=== PATIENT | female | born 1990 | race African-American/Black ===

== ENCOUNTER 2020-11-26 10:11 | Emergency (ER) | payer OTHER ==
[~2020-11-26] VITALS: Ht 157.5 cm; Wt 127.0 kg
--- NOTE | 2020-11-26 10:11 | NUR ---
PT BIBRA FROM HOME C/O ABDOMINAL PAIN AND VAGINAL BLEED. PT IS AAOX4, NOT IN RESPIRATORY DISTRESS, V/S STABLE, KEPT RESTED AND COMFORTABLE. WILL CONTINUE TO MONITOR.
--- NOTE | 2020-11-26 10:22 | NUR ---
AT BEDSIDE FOR EVAL.
[2020-11-26] MEDS ORDERED: MORPHINE SULFATE INJ 2 MG/ML DISP.SYRIN IV ONE (10:30)
[2020-11-26] MEDS ORDERED: ONDANSETRON HCL/PF 4 MG/2 ML VIAL IVP ONE (10:30)
[2020-11-26] MEDS ORDERED: IV NS 0.9% 1,000 ML BAG IV ONE (10:30)
[2020-11-26] MEDS ORDERED: KETOROLAC TROMETHAMINE INJ 30 MG/ML VIAL IV ONE (10:30)
--- NOTE | 2020-11-26 10:30 | NUR ---
IV LINE ESTABLISHED BLOOD DRAWN AND SENT TO LAB.
[2020-11-26] MEDS ORDERED: KETOROLAC TROMETHAMINE INJ 30 MG/ML VIAL ONE (10:33)
[2020-11-26] MEDS ORDERED: ONDANSETRON HCL/PF 4 MG/2 ML VIAL ONE (10:33)
--- NOTE | 2020-11-26 10:37 | NUR ---
TECH AT BEDSIDE FOR ULTRASOUND.
[2020-11-26 11:24] LABS: BASOPHILS % (AUTO) 0.4 % (0.0-2.0); EOSINOPHILS % (AUTO) 0.6 % (0.0-6.0); HEMATOCRIT 35 % (33-45); HEMOGLOBIN 11.6 g/dL (11.5-14.8); LYMPHOCYTES # (AUTO) 1.6 /CMM (0.8-4.8); LYMPHOCYTES % (AUTO) 25.4 % (20.0-44.0); MEAN CORPUSCULAR HGB CONC 33 g/dl (31.0-36.0); MEAN CORPUSCULAR VOLUME 78 fL (82-100); MONOCYTES # (AUTO) 0.5 /CMM (0.1-1.30); MONOCYTES % (AUTO) 8.1 % (2.0-12.0); NEUTROPHILS # (AUTO) 4.1 /CMM (1.8-8.9); NEUTROPHILS % (AUTO) 65.5 % (43.0-81.0); PLATELET COUNT (AUTO) 289 /CMM (150-450); RED BLOOD CELL COUNT(AUTO) 4.53 MIL/uL (4.0-5.2); WHITE BLOOD COUNT (AUTO) 6.3 K/uL (4.3-11.0)
[2020-11-26] MEDS ORDERED: IBUP-1957 PO (11:43)
--- NOTE | 2020-11-26 11:55 | NUR ---
Abena bailey in [facility] - 11/26/20 at 1320 by TYLER REPORT GIVEN TO LADONNA PEREZ FOR [facility]IREN.
[2020-11-26 12:05] LABS: CALCIUM, SERUM 9.2 mg/dL (8.5-10.1); CREATININE 0.8 mg/dL (0.6-1.3); POTASSIUM 3.8 mmol/L (3.5-5.1)
[2020-11-26 12:33] LABS: BILIRUBIN,URINE SMALL (NEGATIVE); COLOR,URINE RED (YELLOW); LEUKOCYTE ESTERASE ,URINE MODERATE (NEGATIVE); NITRITE, URINE POSITIVE (NEGATIVE); PROTEIN,URINE 100 mg/dl (NEGATIVE); UGLUCOSE NEGATIVE (NEGATIVE); UROBILINOGEN,URINE 0.2 EU/dL (0.2)
[2020-11-26 13:07] LABS: RBC,URINE TOO NUMEROUS TO COUN /HPF (0-2)
[2020-11-26 13:09] LABS: BACTERIA,URINE Moderate /HPF (None Seen); SQUAMOUS EPITHELIAL CELL,UR Few /HPF (None Seen)
[2020-11-26 13:20] VITALS: BP 125/72
--- NOTE | 2020-11-26 13:20 | NUR ---
IV removed. Catheter intact and site benign. Pressure and 4x4 applied to site. No bleeding noted. Patient discharged to home in stable condition. Written and verbal after care instructions given. Patient verbalizes understanding of instruction.
== END 2020-11-26 13:21 | disposition home or self-care (01) ==
LOC: ER 10:19
DX: O03.9 Complete or unspecified spontaneous abortion without complication (principal); Z88.6 Allergy status to analgesic agent
CPT/HCPCS: 36415; 76805; 80048; 81001; 84702; 85025; 85730; 86850; 87086; 96361; 96374; 99284; J1885; J2405; J7030; 87186-TC